=== PATIENT | female | born 1940 | race African-American/Black ===

== ENCOUNTER 2016-07-25 13:33 | Emergency (ER) | payer OTHER, BC ==
[2016-07-25 13:40] VITALS: TEMP 98.3; BMI 32.3
--- NOTE | 2016-07-25 14:20 | PDOC ---
Attending Attestation - Resident Resident Name: Braydon Cameron - ED Attending Attestation I have performed the following: I have examined & evaluated the patient, The case was reviewed & discussed with the resident, I agree w/resident's findings & plan - HPI HPI: 07/25/16 14:19 76y F hx of htn, bronchitis, former smoker, presenting with several days of cough productive of greenish sputum, associated with subjective fevers, nasal congestion, abd pain when she is coughing. +sick ocntacts through grandchild. pulm exam noted for rhochi bilaterally, no leg swellig or calf tenderness, and pt otherwise appears well and he rvitals are normal. the pts labs were viewed. cxr negative for pna, influnezan negative. will d/c the pt to fu with pmd and with a zpack for bronchitis. return precautions were discussed I discussed the physical exam findings, ancillary test results and final diagnoses with the patient. I answered all of the patient's questions. The patient was satisfied with the care received and felt comfortable with the discharge plan and treatment plan. The patient will call their primary care physician within 24 hours to arrange follow-up and will return to the Emergency Department with any new, persistent or worsening symptoms. - Physicial Exam PE: 07/25/16 16:21 see above - Medical Decision Making 07/25/16 16:21 see above Heart Score/ECG Review - ECG Impressions Comment:: 07/25/16 16:48 Twelve-lead EKG was performed and reviewed by me. There is normal sinus rhythm with a normal rate of 69 Left axis deviation
--- NOTE | 2016-07-25 14:27 | PDOC ---
History of Present Illness - General Chief Complaint: Respiratory Stated Complaint: CHEST DISCOMFORT Time Seen by Provider: 07/25/16 13:50 History Source: Patient Exam Limitations: No Limitations - History of Present Illness Initial Comments: 07/25/16 14:22 76 yo F with significant PMHx of HTN and bronchitis presents with one week history of worsening cough and shortness of breath. Cough is productive of green sputum but no blood. Accompanied by pleuritic chest pain, body aches, and subjective fevers. She states shortness of breath is worse to the point where home inhalers are not sufficient. No alleviating factors. Denies urinary or GI symptoms. Denies recent travel or sick contacts. She did receive flu shot this year and unsure when she received pneumonia vaccine. Timing/Duration: reports: getting worse Severity: reports: moderate Past History - Travel Traveled outside of the country in the last 30 days: No Close contact w/someone who was outside of country & ill: No - Past Medical History Allergies/Adverse Reactions: Allergies Allergy/AdvReac Type Severity Reaction Status Date / Time No Known Allergies Allergy Verified 07/25/16 13:41 Home Medications: Ambulatory Orders Amlodipine Besylate [Norvasc -] 5 mg PO DAILY 06/19/13 Azithromycin [Zithromax 250mg Tablets -] 250 mg PO UTDICT #6 tab 07/25/16 Cardiac Disorders: Yes HTN: Yes Other medical history: Bronchitis on Trudoza. - Surgical History Abdominal Surgery: Yes (TUBAL LIGATION) - Immunization History Immunization Up to Date: Yes - Psycho/Social/Smoking Cessation Hx Anxiety: No Suicidal Ideation: No Smoking Status: Yes Smoking History: Former smoker Have you smoked in the past 12 months: No Number of Cigarettes Smoked Daily: 6 Information on smoking cessation initiated: No 'Breaking Loose' booklet given: 04/29/12 Hx Alcohol Use: No Drug/Substance Use Hx: No Substance Use Type: None Respiratory Specific PMHX - Complaint Specific PMHX Angina: No Bronchitis: Yes Pneumonia: No Pulmonary Embolus: No TB (Tuberculosis): No Review of Systems - Review of Systems Constitutional: Yes: Fever, Malaise Respiratory: Yes: Cough, Shortness of Breath Cardiac (ROS): Yes: Chest Pain All Other Systems: Reviewed and Negative *Physical Exam - Vital Signs Last Vital Signs Temp Pulse Resp BP Pulse Ox 98.3 F 73 22 145/61 94 L 07/25/16 13:37 07/25/16 13:37 07/25/16 13:37 07/25/16 13:37 07/25/16 13:37 - Physical Exam General Appearance: Yes: Nourished, Mild Distress HEENT: positive: EOMI, ISHAAN, Normal ENT Inspection, Normal Voice, TMs Normal, Pharynx Normal Neck: positive: Supple Respiratory/Chest: positive: Chest Tender, Decreased Breath Sounds, Rhonchi. negative: Respiratory Distress, Accessory Muscle Use Cardiovascular: positive: Regular Rhythm, Regular Rate, S1, S2. negative: Edema , JVD, Murmur Vascular Pulses: Dorsalis-Pedis (R): 2+, Doralis-Pedis (L): 2+ Gastrointestinal/Abdominal: positive: Normal Bowel Sounds, Flat, Soft. negative : Organomegaly, Pulsatile Mass Musculoskeletal: positive: Normal Inspection, CVA Tenderness Extremity: positive: Normal Capillary Refill, Normal Range of Motion Integumentary: positive: Normal Color, Dry, Warm. negative: Cyanotic, Erythema Neurologic: positive: supervisor electronics testing II-XII NML intact, Fully Oriented, Alert, Normal Mood/ Affect, Motor Strength 5/5 Heart Score/ECG Review - ECG Intrepretation Rhythm: Regular Rhythm - Henderson Henderson: Left Henderson Deviation - ECG Impressions Normal ECG: Yes ED Treatment Course - LABORATORY CBC & Chemistry Diagram: 07/25/16 14:36 07/25/16 14:36 - RADIOLOGY Radiology Studies Ordered: Category Date Time Status CHEST X-RAY PORTABLE* [RAD] Stat Radiology 07/25/16 14:20 Ordered Chest X-Ray Result: No Infiltrates Medical Decision Making - Medical Decision Making 07/25/16 14:30 76 yo F with significant PMHx of bronchitis and HTN presents with one week history of worsening productive cough and shortness of breath. Will send CBC, CMP, UA, and Flu swab. Duonebs and supplemental O2. 07/25/16 15:53 CXR- no acute pathology NO white count, kidney function WNL . Will discharge with Z-pack to follow up with PCP in 5 days. *DC/Admit/Observation/Transfer Diagnosis at time of Disposition: Acute bronchitis Qualifiers: Bronchitis organism: unspecified organism Qualified Code(s): J20.9 - Acute bronchitis, unspecified - Discharge Dispostion Disposition: HOME Condition at time of disposition: Stable Admit: No - Patient Instructions Printed Discharge Instructions: DI for Acute Bronchitis Additional Instructions: You have been diagnosed with Acute Bronchitis. Take Z-Pack as directed. Drink plenty of fluids. Follow up with PCP in 5 days. regular diet. Increase activity as tolerated. If symptoms worsen please return to ER.
[2016-07-25] MEDS: ALBUTEROL SO4 2.5/IPRATROPIUM 0.5 INH SOL 3 ML VIAL.NEB. NEB ONE (14:34)
[2016-07-25 15:00] LABS: BASOPHIL 1.1 % (0-2.0); EOSINOPHIL 1.3 % (0-4.5); MCH 27.1 pg (25.7-33.7); MCHC 32.7 g/dl (32.0-36.0); MEAN CELL VOLUME 82.7 fl (80-96); MEAN PLT VOLUME 10.4 fl (7.5-11.1); NEUTROPHILS 50.2 % (42.8-82.8); PLATELET COUNT 108 K/MM3 (134-434); RDW 14.9 % (11.6-15.6)
[2016-07-25 15:26] LABS: ALBUMIN 3.3 g/dl (3.4-5.0); ALK PHOS 77 U/L (45-117); ANION GAP 9 (8-16); BILIRUBIN,TOTAL 0.4 mg/dL (0.2-1.0); CALCIUM 8.1 mg/dL (8.5-10.1); CO2 29 mmol/L (21-32); COCKROFT - GAULT 60.9195; CREATININE 0.9 mg/dL (0.55-1.02); GLUCOSE,RANDOM 127 mg/dL (74-106); SGOT/AST 28 U/L (15-37); SGPT/ALT 30 U/L (12-78); TOT PROT 7.3 g/dl (6.4-8.2)
[2016-07-25 16:04] VITALS: BP 133/75; PULSE 77
[2016-07-25 16:06] LABS: URINE APPEARANCE SLCLOUDY; URINE BILIRUBIN NEGATIVE (NEGATIVE); URINE BLOOD NEGATIVE (NEGATIVE); URINE COLOR YELLOW; URINE GLUCOSE (UA) NEGATIVE (NEGATIVE); URINE KETONE NEGATIVE (NEGATIVE); URINE LEUK ESTERASE NEGATIVE (NEGATIVE); URINE NITRITE NEGATIVE (NEGATIVE); URINE PROTEIN NEGATIVE (NEGATIVE); URINE UROBILINOGEN NEGATIVE E.U./dl (0.2-1.0)
--- NOTE | 2016-07-26 09:28 | EKG ---
Test Reason : Blood Pressure : / mmHG Vent. Rate : 069 BPM Atrial Rate : 069 BPM P-R Int : 174 ms QRS Dur : 066 ms QT Int : 442 ms P-R-T Axes : 062 -43 025 degrees QTc Int : 473 ms POOR DATA QUALITY, INTERPRETATION MAY BE ADVERSELY AFFECTED NORMAL SINUS RHYTHM LEFT AXIS DEVIATION LOW VOLTAGE QRS CANNOT RULE OUT ANTERIOR INFARCT , AGE UNDETERMINED ABNORMAL ECG NO PREVIOUS ECGS AVAILABLE Confirmed by DINO GUTIERREZ MD ([id number]) on 07/26/2016 9:28:34 AM Referred By: Confirmed By:DINO GUTIERREZ MD
== END 2016-07-25 16:08 | disposition home or self-care (01) ==
LOC: JER 13:33
PROC: 3E0F7GC Introduction of Other Therapeutic Substance into Respiratory Tract, Via Natural or Artificial Opening (ICD-10-PCS; principal; 2016-07-25)
DX: J20.9 Acute bronchitis, unspecified (principal); I10 Essential (primary) hypertension; Z87.891 Personal history of nicotine dependence
CPT/HCPCS: 36415; 71010-TC; 80053; 81003; 85025; 87804; 93005; 93010; 99283-25

== ENCOUNTER 2017-06-09 10:51 | Emergency (ER) | payer OTHER, BC ==
[2017-06-09 11:01] VITALS: BP 149/75; PULSE 71; TEMP 98.1; BMI 32.3
[2017-06-09] MEDS ORDERED: OXYMETAZOLINE 0.05% NASAL SOLUTION 15 ML BOTTLE NS ONE (11:45)
--- NOTE | 2017-06-09 11:52 | PDOC ---
History of Present Illness - General Chief Complaint: Nasal Bleeding Stated Complaint: NASAL BLEED Time Seen by Provider: 06/09/17 11:36 History Source: Patient - History of Present Illness Timing/Duration: other (this am) Associated Symptoms: denies: chest pain, cough, fever/chills, nausea/vomiting, shortness of breath, weakness Past History - Past Medical History Allergies/Adverse Reactions: Allergies Allergy/AdvReac Type Severity Reaction Status Date / Time No Known Allergies Allergy Verified 06/09/17 10:55 Home Medications: Ambulatory Orders Amlodipine Besylate [Norvasc -] 5 mg PO DAILY 06/19/13 Aspirin [ASA -] 81 mg PO DAILY 06/09/17 Cephalexin [Keflex] 500 mg PO Q6H #28 capsule 06/09/17 Sodium Chloride Nasal Alma [Clarke Alma Nasal Alma] 2 spray NS ONCE #1 spraybtl 06/09/17 Cardiac Disorders: Yes COPD: No HTN: Yes - Surgical History Abdominal Surgery: Yes (TUBAL LIGATION) - Immunization History Immunization Up to Date: Yes - Suicide/Smoking/Psychosocial Hx Smoking Status: Yes Smoking History: Former smoker Have you smoked in the past 12 months: No Number of Cigarettes Smoked Daily: 6 Information on smoking cessation initiated: No 'Breaking Loose' booklet given: 04/29/12 Hx Alcohol Use: No Drug/Substance Use Hx: No Substance Use Type: None *Physical Exam - Vital Signs Last Vital Signs Temp Pulse Resp BP Pulse Ox 98.1 F 71 14 149/75 100 06/09/17 10:56 06/09/17 10:56 06/09/17 10:56 06/09/17 10:56 06/09/17 10:56 - Physical Exam General Appearance: Yes: Appropriately Dressed. No: Apparent Distress HEENT: positive: Normal Voice, Other (b/l epistaxis w/ trace blood to oropharynx , no visible vessel) Neck: positive: Supple Respiratory/Chest: negative: Respiratory Distress Integumentary: positive: Dry, Warm Neurologic: positive: Fully Oriented, Alert, Normal Mood/Affect Medical Decision Making - Medical Decision Making 06/09/17 11:46 76-year-old female, history of hypothyroidism, hypertension, former smoker, recurrent epistaxis with history of nasal packing and cauterization in the past , follows up with Dr. Perdue of ENT, here with recurrent epistaxis this a.m. Patient states this a.m. had spontaneous nosebleed to R nares and at some point began having bleeding from the left side as well. Currently holding pressure in ED. Denies tasting blood in her throat. No headache, dizziness, nausea or vomiting. No recent URIs. States her apartment is very hot at times See exam Recurrent epistaxis S/p packing/cauterizations in past Stable w/ b/l epistaxis, R>L w/ trace blood to oropharynx -will attempt 20 minutes compression and afrin in ED, if no success, will place rhinorocket -consult to Dr Perdue of ENT placed 06/09/17 11:[address] Perdue of ENT, agrees with packing if above measures fail. States patient to follow-up in his office in 3 days 06/09/17 12:23 After approximately 30 minutes of compression in ED and Afrin, bleeding has currently resolved. Will continue to observe in ER and if bleeding recurs, will place rhino rocket and have patient follow-up with ENT 06/09/17 14:43 After a period of observation in ED, there is minor bleeding recurrently to the right nares. At this point, a 4.5 nasal rocket was placed, as patient was unable to tolerate the 5.5 Rhino Rocket. Discharge with Keflex to prevent TSS and patient to follow-up with ENT in 3 days as discussed *DC/Admit/Observation/Transfer Diagnosis at time of Disposition: Epistaxis - Discharge Dispostion Disposition: HOME Condition at time of disposition: Improved - Prescriptions Prescriptions: Cephalexin [Keflex] 500 mg PO Q6H #28 capsule Sodium Chloride Nasal Alma [Clarke Alma Nasal Alma] 2 spray NS ONCE #1 spraybtl - Referrals - Patient Instructions Printed Discharge Instructions: DI for Nosebleed Additional Instructions: You were seen for nosebleed in ED today and had a nasal packing placed to your right nose. Please take antibiotics as prescribed. You can use nasal saline spray in the left side to prevent rebleed. If bleeding recurs, return to ER immediately, otherwise follow-up with Dr. Perdue of ENT in 3 days for reevaluation evaluation - Post Discharge Activity
== END 2017-06-09 14:45 | disposition home or self-care (01) ==
LOC: JERFT 10:51
PROC: 0W3Q7ZZ Control Bleeding in Respiratory Tract, Via Natural or Artificial Opening (ICD-10-PCS; principal; 2017-06-09)
DX: R04.0 Epistaxis (principal); I10 Essential (primary) hypertension; E03.9 Hypothyroidism, unspecified; Z79.82 Long term (current) use of aspirin; Z87.891 Personal history of nicotine dependence
CPT/HCPCS: 30905; 99281-25

== ENCOUNTER 2020-06-17 11:20 | Emergency (ER) | payer OTHER, BC ==
[2020-06-17 11:35] VITALS: BP 147/74; PULSE 89; TEMP 98.5; BMI 30.2
[2020-06-17] MEDS ORDERED: ACETAMINOPHEN/CAFFEINE/BUTALBITAL 1 TAB PO ONE (12:19)
[2020-06-17] MEDS ORDERED: ACETAMINOPHEN/CAFFEINE/BUTALBITAL 1 TAB ONE (12:26)
== END 2020-06-17 13:43 | disposition home or self-care (01) ==
LOC: JERFT 11:20
DX: R51.9 Headache, unspecified (principal); Z04.1 Encounter for examination and observation following transport accident
CPT/HCPCS: 70450-TC; 72125-TC; 99284-25

== ENCOUNTER 2020-07-13 12:32 | Emergency (ER) | payer OTHER, BC ==
[2020-07-13 12:38] VITALS: BMI 30.2
[2020-07-13 15:07] LABS: EOS % 7.5 % (0-4.5); HEMATOCRIT 39.1 % (32.4-45.2); HEMOGLOBIN 12.6 GM/dL (10.7-15.3); LYMPH % 12.1 % (8-40); MCH 30.8 pg (25.7-33.7); MCHC 32.3 g/dl (32.0-36.0); MEAN CELL VOLUME 95.2 fl (80-96); MEAN PLT VOLUME 9.2 fl (7.5-11.1); MONO % 1.7 % (3.8-10.2); NEUT % 77.7 % (42.8-82.8); PLATELET COUNT 262 K/MM3 (134-434); RBC 4.11 M/mm3 (3.60-5.2); RDW 17.3 % (11.6-15.6); WHITE BLOOD COUNT 20.3 K/mm3 (4.0-10.0)
[2020-07-13 15:23] LABS: POTASSIUM 3.8 mmol/L (3.5-5.1)
[2020-07-13 15:25] LABS: CALCIUM 8.8 mg/dL (8.5-10.1)
[2020-07-13 15:26] LABS: ALBUMIN 3.8 g/dl (3.4-5.0); BLOOD UREA NITROGEN 8.1 mg/dL (7-18)
[2020-07-13 15:29] LABS: CREATININE 0.8 mg/dL (0.55-1.3)
[2020-07-13 15:30] LABS: BILIRUBIN,TOTAL 0.4 mg/dL (0.2-1)
[2020-07-13 15:31] LABS: TOT PROT 7.4 g/dl (6.4-8.2)
[2020-07-13 16:33] LABS: ANISOCYTOSIS 1+; MACROCYTOSIS 1+; PLATELET ESTIMATE NORMAL
[2020-07-13 16:54] LABS: URINE APPEARANCE CLEAR; URINE BILIRUBIN NEGATIVE (NEGATIVE); URINE COLOR YELLOW; URINE GLUCOSE (UA) NEGATIVE (NEGATIVE); URINE KETONE NEGATIVE (NEGATIVE); URINE LEUK ESTERASE NEGATIVE (NEGATIVE); URINE NITRITE NEGATIVE (NEGATIVE); URINE PROTEIN NEGATIVE (NEGATIVE); URINE UROBILINOGEN 0.2 mg/dL (0.2-1.0)
[2020-07-13 17:41] VITALS: BP 128/73; PULSE 78; TEMP 98.3
== END 2020-07-13 17:41 | disposition home or self-care (01) ==
LOC: JER 12:32
DX: K62.5 Hemorrhage of anus and rectum (principal)
CPT/HCPCS: 36415; 80053; 81003; 82272; 85025; 87086; 99284-25

== ENCOUNTER 2020-10-11 11:06 | Day surgery (SDC) | payer OTHER, BC ==
[2020-10-10 10:52] VITALS: BMI 30.4
[2020-10-11 12:42] VITALS: TEMP 98.2
[2020-10-11 12:48] VITALS: BP 123/74
[2020-10-11 13:00] VITALS: PULSE 68
== END 2020-10-11 13:50 | disposition home or self-care (01) ==
LOC: FASU-ENDO 11:06
PROVIDERS: ATTEND Internal Medicine Gastroenterology
PROC: 0DBN8ZX Excision of Sigmoid Colon, Via Natural or Artificial Opening Endoscopic, Diagnostic (ICD-10-PCS; 2020-10-11)
PROC: 0DBK8ZX Excision of Ascending Colon, Via Natural or Artificial Opening Endoscopic, Diagnostic (ICD-10-PCS; principal; 2020-10-11 12:09)
DX: Z12.11 Encounter for screening for malignant neoplasm of colon (principal); D12.5 Benign neoplasm of sigmoid colon; K57.30 Diverticulosis of large intestine without perforation or abscess without bleeding; K64.1 Second degree hemorrhoids; K63.89 Other specified diseases of intestine
CPT/HCPCS: 88305-TC

== ENCOUNTER 2021-08-23 14:40 | Inpatient (IN) | payer OTHER, BC ==
[2021-08-23 15:17] VITALS: BMI 30.1
[2021-08-23] MEDS ORDERED: FAMOTIDINE 20 MG/50 ML IVPB 20 MG in PREMIX 50 IVPB ONE (18:08)
[2021-08-23] MEDS ORDERED: MAG HYDROX/AL HYDROX/SIMETH -MYLANTA- ORAL SUSPENSION PO ONE (18:08)
[2021-08-23 18:16] LABS: CALCIUM 9.3 mg/dL (8.5-10.1)
[2021-08-23 18:17] LABS: ALBUMIN 3.9 g/dl (3.4-5.0); BLOOD UREA NITROGEN 11.5 mg/dL (7-18)
[2021-08-23 18:20] LABS: CREATININE 1.1 mg/dL (0.55-1.3); HEMATOCRIT 46.5 % (32.4-45.2); HEMOGLOBIN 14.6 GM/dL (10.7-15.3); MCH 28.8 pg (25.7-33.7); MCHC 31.5 g/dl (32.0-36.0); MEAN CELL VOLUME 91.6 fl (80-96); MEAN PLT VOLUME 8.6 fl (7.5-11.1); PLATELET COUNT 276 10^3/uL (134-434); RBC 5.08 M/mm3 (3.60-5.2); RDW 18.4 % (11.6-15.6)
[2021-08-23 18:21] LABS: BILIRUBIN,TOTAL 0.7 mg/dL (0.2-1)
[2021-08-23 18:22] LABS: TOT PROT 8.3 g/dl (6.4-8.2)
[2021-08-23 18:36] LABS: WHITE BLOOD COUNT 37.4 K/mm3 (4.0-10.0)
[2021-08-23] MEDS ORDERED: CEFTRIAXONE 1 GM in DEXTROSE 5%-WATER - 50 ML IVPB ONE (18:37)
[2021-08-23] MEDS ORDERED: AZITHROMYCIN IVPB 500 MG in DEXTROSE 5%-WATER - 250 ML IVPB ONE (18:37)
[2021-08-23 19:13] LABS: ANISOCYTOSIS 1+; MACROCYTOSIS 1+; PLATELET ESTIMATE NORMAL
[2021-08-23 19:45] LABS: VENOUS BASE EXCESS 0.5 mmol/L (-2-2); VENOUS O2 SATURATION 53.1 % (70-80); VENOUS PCO2 46.6 mmHg (38-52); VENOUS PH 7.37 (7.310-7.410)
[2021-08-23] MEDS ORDERED: CEFTRIAXONE 1 GM/50 ML BAG ONE (20:29)
[2021-08-23] MEDS ORDERED: AZITHROMYCIN IVPB 500 MG/250 ML BAG IVPB ONE (21:38)
[2021-08-24] MEDS ORDERED: ALBUTEROL SO4 2.5/IPRATROPIUM 0.5 INH SOL 3 ML VIAL.NEB. NEB ONE ×4 (01:52→15:32)
[2021-08-24] MEDS ORDERED: DEXAMETHASONE SOD PHOSPHATE 10 MG/1 ML VIAL IVPUSH ONE (01:52)
[2021-08-24] MEDS ORDERED: DEXAMETHASONE SOD PHOSPHATE 10 MG/1 ML VIAL ONE (02:13)
[2021-08-24] MEDS ORDERED: ACETAMINOPHEN 325 MG TABLET (FP) ONE (07:22)
[2021-08-24] MEDS: ACETAMINOPHEN 325 MG TABLET (FP) PO PRN (07:28)
[2021-08-24] MEDS ORDERED: ALBUTEROL SO4 HFA INHALER IH PRN (09:44)
[2021-08-24] MEDS ORDERED: ENOXAPARIN NA (PORCINE) 40 MG/0.4 ML DISP.SYRIN SQ ONE (09:48)
[2021-08-24] MEDS ORDERED: ASPIRIN 81 MG CHEWABLE TABLETS ONE (09:48)
[2021-08-24] MEDS ORDERED: amLODIPine BESYLATE 5 MG TABLET (FP) ONE (09:48)
[2021-08-24] MEDS: amLODIPine BESYLATE 5 MG TABLET (FP) PO SCH (09:56)
[2021-08-24] MEDS: ASPIRIN 81 MG CHEWABLE TABLETS PO SCH (09:56)
[2021-08-24] MEDS: ENOXAPARIN NA (PORCINE) 40 MG/0.4 ML DISP.SYRIN SQ SCH (09:56)
[2021-08-24 10:06] LABS: PH,URINE 5.5 (5.0-8.0); URINE APPEARANCE CLEAR; URINE BILIRUBIN NEGATIVE (NEGATIVE); URINE COLOR YELLOW; URINE GLUCOSE (UA) NEGATIVE (NEGATIVE); URINE KETONE NEGATIVE (NEGATIVE); URINE PROTEIN 1+ (NEGATIVE)
[2021-08-24 10:07] LABS: EPI CELLS 8 /uL (0-25.1); HYALINE CASTS 0.6 /uL (0-3.1); URINE BACTERIA 5 /uL (0-1359); URINE LEUK ESTERASE NEGATIVE (NEGATIVE); URINE NITRITE NEGATIVE (NEGATIVE); URINE RBC 30 /uL (0-23.9); URINE UROBILINOGEN 0.2 mg/dL (0.2-1.0); URINE WBC 3 /uL (0-25.8)
[2021-08-24] MEDS: LACTATED RINGERS SOLUTION 1,000 ML/1,000 ML INFUS.BAG IV SCH ×2 (14:45→20:29)
[2021-08-24] MEDS: CEFTRIAXONE 1 GM in DEXTROSE 5%-WATER - 50 ML IVPB SCH (15:00)
[2021-08-24] MEDS: AZITHROMYCIN IVPB 500 MG/250 ML BAG IVPB SCH (15:30)
[2021-08-24] MEDS ORDERED: CEFTRIAXONE 1 GM/50 ML BAG ONE (15:31)
[2021-08-24] MEDS ORDERED: AZITHROMYCIN IVPB 500 MG/250 ML BAG IVPB ONE (15:32)
[2021-08-24] MEDS: ALBUTEROL SO4 2.5/IPRATROPIUM 0.5 INH SOL 3 ML VIAL.NEB. NEB SCH ×2 (15:40→20:53)
[2021-08-24 17:09] LABS: SARS-CoV-2 NAA Not Detected (Not Detected)
[2021-08-25 07:00] LABS: HEMATOCRIT 41.4 % (32.4-45.2); MCHC 31.4 g/dl (32.0-36.0); MEAN CELL VOLUME 92.2 fl (80-96); MEAN PLT VOLUME 9.4 fl (7.5-11.1); PLATELET COUNT 265 10^3/uL (134-434); RBC 4.49 M/mm3 (3.60-5.2); RDW 18.2 % (11.6-15.6)
[2021-08-25] MEDS: ALBUTEROL SO4 2.5/IPRATROPIUM 0.5 INH SOL 3 ML VIAL.NEB. NEB SCH ×4 (07:15→20:08)
[2021-08-25 07:18] LABS: ALBUMIN 3.2 g/dl (3.4-5.0); CALCIUM 8.8 mg/dL (8.5-10.1)
[2021-08-25 07:19] LABS: BLOOD UREA NITROGEN 21.4 mg/dL (7-18); MAGNESIUM 2.2 mg/dL (1.8-2.4)
[2021-08-25 07:21] LABS: CREATININE 0.9 mg/dL (0.55-1.3)
[2021-08-25 07:22] LABS: PHOSPHOROUS 3.8 mg/dL (2.5-4.9)
[2021-08-25 07:23] LABS: BILIRUBIN,TOTAL 0.2 mg/dL (0.2-1); TOT PROT 6.5 g/dl (6.4-8.2)
[2021-08-25 07:26] LABS: CALCIUM 8.9 mg/dL (8.5-10.1)
[2021-08-25 07:28] LABS: ALBUMIN 3.1 g/dl (3.4-5.0); BLOOD UREA NITROGEN 21.1 mg/dL (7-18); MAGNESIUM 2.4 mg/dL (1.8-2.4)
[2021-08-25 07:30] LABS: CREATININE 0.9 mg/dL (0.55-1.3)
[2021-08-25 07:32] LABS: BILIRUBIN,TOTAL 0.2 mg/dL (0.2-1); TOT PROT 6.6 g/dl (6.4-8.2)
[2021-08-25 07:33] LABS: WHITE BLOOD COUNT 40.5 K/mm3 (4.0-10.0)
[2021-08-25] MEDS ORDERED: cefTRIAXone SODIUM 1 GM VIAL ONE (09:05)
[2021-08-25] MEDS ORDERED: DEXTROSE 5%-WATER - 50 ML IVPB ONE (09:05)
[2021-08-25] MEDS: CEFTRIAXONE 1 GM in DEXTROSE 5%-WATER - 50 ML IVPB SCH (09:09)
[2021-08-25] MEDS: ENOXAPARIN NA (PORCINE) 40 MG/0.4 ML DISP.SYRIN SQ SCH (09:09)
[2021-08-25] MEDS: amLODIPine BESYLATE 5 MG TABLET (FP) PO SCH (09:09)
[2021-08-25] MEDS: AZITHROMYCIN IVPB 500 MG/250 ML BAG IVPB SCH (09:09)
[2021-08-25] MEDS: ASPIRIN 81 MG CHEWABLE TABLETS PO SCH (09:09)
[2021-08-25 09:37] LABS: ANISOCYTOSIS 0; MACROCYTOSIS 0
[2021-08-25 09:41] LABS: PLATELET ESTIMATE NORMAL
[2021-08-25] MEDS: LACTATED RINGERS SOLUTION 1,000 ML/1,000 ML INFUS.BAG IV SCH (13:46)
[2021-08-25] MEDS: ACETAMINOPHEN 325 MG TABLET (FP) PO PRN (21:53)
[2021-08-25] MEDS: BENZOCAINE/MENTH/CETYLPYRD CL 1 EACH LOZENGE MM PRN (23:20)
[2021-08-26] MEDS: ALBUTEROL SO4 2.5/IPRATROPIUM 0.5 INH SOL 3 ML VIAL.NEB. NEB SCH ×4 (07:50→20:08)
[2021-08-26] MEDS ORDERED: cefTRIAXone SODIUM 1 GM VIAL ONE (09:12)
[2021-08-26] MEDS ORDERED: DEXTROSE 5%-WATER - 50 ML IVPB ONE (09:13)
[2021-08-26] MEDS: ASPIRIN 81 MG CHEWABLE TABLETS PO SCH (09:23)
[2021-08-26] MEDS: ENOXAPARIN NA (PORCINE) 40 MG/0.4 ML DISP.SYRIN SQ SCH (09:26)
[2021-08-26] MEDS: AZITHROMYCIN IVPB 500 MG/250 ML BAG IVPB SCH (09:26)
[2021-08-26] MEDS: CEFTRIAXONE 1 GM in DEXTROSE 5%-WATER - 50 ML IVPB SCH (09:26)
[2021-08-26] MEDS: amLODIPine BESYLATE 5 MG TABLET (FP) PO SCH (09:26)
[2021-08-26 11:54] LABS: HEMOGLOBIN 13.1 GM/dL (10.7-15.3); MCH 29.8 pg (25.7-33.7); MCHC 32.8 g/dl (32.0-36.0); MEAN CELL VOLUME 90.8 fl (80-96); MEAN PLT VOLUME 8.8 fl (7.5-11.1); PLATELET COUNT 274 10^3/uL (134-434); RBC 4.41 M/mm3 (3.60-5.2); RDW 18.2 % (11.6-15.6); WHITE BLOOD COUNT 29.4 K/mm3 (4.0-10.0)
[2021-08-26 12:15] LABS: CALCIUM 8.1 mg/dL (8.5-10.1)
[2021-08-26 12:19] LABS: CREATININE 0.8 mg/dL (0.55-1.3)
[2021-08-26] MEDS: BENZOCAINE/MENTH/CETYLPYRD CL 1 EACH LOZENGE MM PRN (23:40)
[2021-08-27 07:09] LABS: HEMATOCRIT 41.2 % (32.4-45.2); MCH 29.2 pg (25.7-33.7); MCHC 31.5 g/dl (32.0-36.0); MEAN CELL VOLUME 92.8 fl (80-96); MEAN PLT VOLUME 9.2 fl (7.5-11.1); PLATELET COUNT 268 10^3/uL (134-434); RBC 4.43 M/mm3 (3.60-5.2); RDW 18.2 % (11.6-15.6); WHITE BLOOD COUNT 17.1 K/mm3 (4.0-10.0)
[2021-08-27 07:25] LABS: CALCIUM 8.4 mg/dL (8.5-10.1)
[2021-08-27 07:27] LABS: BLOOD UREA NITROGEN 9.5 mg/dL (7-18)
[2021-08-27 07:30] LABS: CREATININE 0.8 mg/dL (0.55-1.3)
[2021-08-27] MEDS: ALBUTEROL SO4 2.5/IPRATROPIUM 0.5 INH SOL 3 ML VIAL.NEB. NEB SCH ×3 (07:40→15:45)
[2021-08-27] MEDS ORDERED: cefTRIAXone SODIUM 1 GM VIAL ONE (10:38)
[2021-08-27] MEDS ORDERED: DEXTROSE 5%-WATER - 50 ML IVPB ONE (10:38)
[2021-08-27] MEDS: ENOXAPARIN NA (PORCINE) 40 MG/0.4 ML DISP.SYRIN SQ SCH (10:41)
[2021-08-27] MEDS: amLODIPine BESYLATE 5 MG TABLET (FP) PO SCH (10:41)
[2021-08-27] MEDS: AZITHROMYCIN IVPB 500 MG/250 ML BAG IVPB SCH (10:41)
[2021-08-27] MEDS: CEFTRIAXONE 1 GM in DEXTROSE 5%-WATER - 50 ML IVPB SCH (10:41)
[2021-08-27] MEDS: ASPIRIN 81 MG CHEWABLE TABLETS PO SCH (10:41)
[2021-08-27 18:42] VITALS: BP 125/66; PULSE 88; TEMP 98.5
== END 2021-08-27 18:39 | disposition home or self-care (01) | DRG 189 ==
LOC: JER 14:40 → JERBED 23:56 → J2W 08-24 19:58
PROVIDERS: ADMIT Hospitalist; ATTEND Internal Medicine
DX: J96.01 Acute respiratory failure with hypoxia (principal); J18.9 Pneumonia, unspecified organism; C92.10 Chronic myeloid leukemia, BCR/ABL-positive, not having achieved remission; D72.829 Elevated white blood cell count, unspecified; I10 Essential (primary) hypertension; R91.8 Other nonspecific abnormal finding of lung field
CPT/HCPCS: 36415; 71045-TC-FY; 71275-TC; 80048; 80053; 81003; 82803; 83690; 83735; 84100; 84443; 84484; 85025; 85027; 85379; 86738; 87040; 87086; 87804; 87807; 87899; 93005; 93010; 94640; 94761; 97116-GP; 97161-GP; 99285-25; C9803-CS; J1100; Q9967; U0003; U0005

== ENCOUNTER 2021-12-31 16:14 | Emergency (ER) | payer OTHER, BC ==
[2021-12-31 16:28] VITALS: BP 134/68; PULSE 80; RESP 16; TEMP 98
[2021-12-31] MEDS ORDERED: DIPHTH,PERTUSS(ACELL),TET 0.5 ML DISP.SYRIN IM ONE ×2 (18:19→18:23)
== END 2021-12-31 21:17 | disposition home or self-care (01) ==
LOC: JERFT 16:14
PROC: 3E0234Z Introduction of Serum, Toxoid and Vaccine into Muscle, Percutaneous Approach (ICD-10-PCS; principal; 2021-12-31)
DX: S70.01XA Contusion of right hip, initial encounter (principal); S46.911A Strain of unspecified muscle, fascia and tendon at shoulder and upper arm level, right arm, initial encounter; W01.0XXA Fall on same level from slipping, tripping and stumbling without subsequent striking against object, initial encounter
CPT/HCPCS: 70450-TC; 72125-TC; 73030-TC-RT-FY; 73502-TC-RT-FY; 73700-TC-RT; 90471; 90715; 99285-25

== ENCOUNTER 2022-11-07 13:20 | Emergency (ER) | payer OTHER, BC ==
[2022-11-07 13:28] VITALS: BP 163/87; PULSE 78; RESP 18; TEMP 98.7; BMI 26.2
[2022-11-07] MEDS ORDERED: ACETAMINOPHEN 325 MG TABLET (FP) PO ONE (13:35)
[2022-11-07] MEDS ORDERED: ACETAMINOPHEN 325 MG TABLET (FP) ONE (13:39)
== END 2022-11-07 16:00 | disposition home or self-care (01) ==
LOC: FER 13:20
DX: M25.551 Pain in right hip (principal); W01.198A Fall on same level from slipping, tripping and stumbling with subsequent striking against other object, initial encounter
CPT/HCPCS: 70450-TC; 71046-TC-FY; 72125-TC; 72170-TC-FY; 73521-TC-FY; 81003; 87086; 99285-25

== ENCOUNTER 2023-02-10 12:45 | Inpatient (IN) | payer OTHER, BC ==
[2023-02-17 17:43] VITALS: BMI 25.8
[2023-02-21] MEDS ORDERED: CEFAZOLIN 2 GM in DEXTROSE 5%-WATER - 50 ML IVPB ONE (07:00)
[2023-02-21] MEDS ORDERED: VANCOMYCIN 1,000 MG VIAL (RESTRICTED TO ID ONLY) ONE ×2 (07:15→08:27)
[2023-02-21] MEDS ORDERED: MIDAZOLAM HCL 2 MG/2 ML SINGLE DOSE VIAL ONE ×2 (07:29→09:54)
[2023-02-21] MEDS ORDERED: DEXAMETHASONE SOD PHOSPHATE/PF 10 MG/ML SDV ONE (07:30)
[2023-02-21] MEDS ORDERED: ROPIVACAINE HCL 0.5% 30ML VIAL ONE (07:30)
[2023-02-21] MEDS ORDERED: TRANEXAMIC ACID 1000 MG/10 ML VIAL IVPUSH ONE (08:00)
[2023-02-21] MEDS ORDERED: BUPIVACAINE HCL/PF 0.5% (5MG/ML) 10 ML VIAL ONE (08:20)
[2023-02-21] MEDS ORDERED: ceFAZolin SODIUM 1 GM VIAL ONE (08:27)
[2023-02-21] MEDS ORDERED: ONDANSETRON 4 MG/2 ML VIAL ONE (08:40)
[2023-02-21] MEDS ORDERED: DEXAMETHASONE SOD PHOSPHATE 4 MG/1 ML VIAL ONE (08:40)
[2023-02-21] MEDS ORDERED: BUPIVICAINE 0.25%/MORPH PF/KETOROLAC - 51ML DISP.SYRINGE IA ONE ×2 (09:50→10:28)
[2023-02-21] MEDS ORDERED: VANCOMYCIN 1,000 MG VIAL (RESTRICTED TO ID ONLY) IVPB ONE (10:21)
[2023-02-21] MEDS ORDERED: ONDANSETRON 4 MG/2 ML VIAL IVPUSH PRN ×2 (11:11→11:16)
[2023-02-21] MEDS ORDERED: MAG HYDROX/AL HYDROX/SIMETH 30 ML UNIT-DOSE CUP PO PRN (11:11)
[2023-02-21] MEDS ORDERED: MAGNESIUM HYDROX 2400MG/30ML ORAL SUSPENSION 30 ML CUP PO PRN (11:11)
[2023-02-21] MEDS ORDERED: LACTATED RINGERS SOLUTION 1,000 ML IV SCH (11:15)
[2023-02-21] MEDS ORDERED: ACETAMINOPHEN 1000 MG/100 ML BAG IVPB ONE (11:42)
[2023-02-21] MEDS ORDERED: oxyCODONE HCL 5 MG TABLET PO PRN (11:42)
[2023-02-21] MEDS: KETOROLAC TROMETHAMINE 30 MG/1 ML VIAL IVPUSH SCH ×2 (12:09→16:55)
[2023-02-21] MEDS: LACTATED RINGERS SOLUTION 1,000 ML IV SCH (13:00)
[2023-02-21] MEDS: CEFAZOLIN 1 GM in DEXTROSE 5%-WATER - 50 ML IVPB SCH (16:55)
[2023-02-21] MEDS ORDERED: ACETAMINOPHEN 500 MG TABLET (FP) PO SCH ×2 (18:00)
[2023-02-21] MEDS: ACETAMINOPHEN 325 MG TABLET (FP) PO SCH (20:44)
[2023-02-21] MEDS: SENNOSIDES/DOCUSATE COMBO (SENNA PLUS) TABLET (UD) PO SCH (22:54)
[2023-02-21] MEDS: oxyCODONE HCL 10 MG SUSTAINED ACTING TABLET PO SCH (22:54)
[2023-02-22] MEDS: CEFAZOLIN 1 GM in DEXTROSE 5%-WATER - 50 ML IVPB SCH ×3 (00:08→18:38)
[2023-02-22] MEDS: ACETAMINOPHEN 325 MG TABLET (FP) PO SCH ×4 (01:50→21:03)
[2023-02-22 08:27] LABS: HEMATOCRIT 32.2 % (32.4-45.2); HEMOGLOBIN 9.9 G/dL (10.7-15.3); MCH 29.2 pg (25.7-33.7); MCHC 30.6 g/dl (32.0-36.0); MEAN CELL VOLUME 95.5 fl (80-96); MEAN PLT VOLUME 10.1 fl (7.5-11.1); PLATELET COUNT 416.3 10^3/uL (134-434); RBC 3.37 10^6/uL (3.60-5.2); RDW 18.2 % (11.6-15.6)
[2023-02-22 08:33] LABS: WHITE BLOOD COUNT 69.5 10^3/uL (4.0-10.8)
[2023-02-22] MEDS: ASPIRIN 81 MG CHEWABLE TABLETS PO SCH ×2 (10:10→21:04)
[2023-02-22] MEDS: MULTIVITAMINS (DAILY MVI) TABLET (FP) PO SCH (10:10)
[2023-02-22] MEDS: PANTOPRAZOLE 40 MG TABLET PO SCH (10:11)
[2023-02-22] MEDS: SENNOSIDES/DOCUSATE COMBO (SENNA PLUS) TABLET (UD) PO SCH ×2 (10:11→21:04)
[2023-02-22 11:01] LABS: POTASSIUM 4.6 mmol/L (3.5-5.1)
[2023-02-22 11:02] LABS: CALCIUM 7.8 mg/dL (8.5-10.1)
[2023-02-22 11:03] LABS: BLOOD UREA NITROGEN 20.7 mg/dL (7-18)
[2023-02-22 11:06] LABS: CREATININE 1.4 mg/dL (0.55-1.3)
[2023-02-22] MEDS: oxyCODONE HCL 10 MG SUSTAINED ACTING TABLET PO SCH ×2 (18:33→21:04)
[2023-02-22] MEDS: amLODIPine BESYLATE 5 MG TABLET (FP) PO SCH (18:34)
[2023-02-23] MEDS: ACETAMINOPHEN 325 MG TABLET (FP) PO SCH ×4 (02:41→21:18)
[2023-02-23 09:30] LABS: HEMATOCRIT 26.1 % (32.4-45.2); HEMOGLOBIN 7.9 G/dL (10.7-15.3); MCH 28.8 pg (25.7-33.7); MCHC 30.2 g/dl (32.0-36.0); MEAN CELL VOLUME 95.6 fl (80-96); MEAN PLT VOLUME 10.2 fl (7.5-11.1); RBC 2.73 10^6/uL (3.60-5.2); RDW 17.9 % (11.6-15.6)
[2023-02-23 09:39] LABS: WHITE BLOOD COUNT 60.3 10^3/uL (4.0-10.8)
[2023-02-23] MEDS: MULTIVITAMINS (DAILY MVI) TABLET (FP) PO SCH (10:30)
[2023-02-23] MEDS: ASPIRIN 81 MG CHEWABLE TABLETS PO SCH ×2 (10:30→21:18)
[2023-02-23] MEDS: SENNOSIDES/DOCUSATE COMBO (SENNA PLUS) TABLET (UD) PO SCH ×2 (10:31→21:19)
[2023-02-23] MEDS: PANTOPRAZOLE 40 MG TABLET PO SCH (10:31)
[2023-02-23] MEDS: oxyCODONE HCL 10 MG SUSTAINED ACTING TABLET PO SCH ×2 (10:33→21:19)
[2023-02-23] MEDS: amLODIPine BESYLATE 5 MG TABLET (FP) PO SCH (10:34)
[2023-02-23 18:32] LABS: HEMATOCRIT 21.6 % (32.4-45.2); MCH 29.7 pg (25.7-33.7); MCHC 31.4 g/dl (32.0-36.0); MEAN CELL VOLUME 94.6 fl (80-96); PLATELET COUNT 312.7 10^3/uL (134-434); RBC 2.28 10^6/uL (3.60-5.2); RDW 18.5 % (11.6-15.6)
[2023-02-23 18:38] LABS: HEMOGLOBIN 6.8 G/dL (10.7-15.3); WHITE BLOOD COUNT 40.4 10^3/uL (4.0-10.8)
[2023-02-23 19:27] LABS: ADD RBC MORPHOLOGY YES
[2023-02-23 19:28] LABS: PLATELET ESTIMATE ADEQUATE
[2023-02-23 19:29] LABS: ANISOCYTOSIS 1+
[2023-02-23] MEDS: LACTATED RINGERS SOLUTION 1,000 ML IV SCH (20:59)
[2023-02-24] MEDS: ACETAMINOPHEN 325 MG TABLET (FP) PO SCH ×3 (03:14→08:58)
[2023-02-24 06:37] VITALS: RESP 16
[2023-02-24] MEDS: oxyCODONE HCL 5 MG TABLET PO PRN ×2 (06:39→10:42)
[2023-02-24] MEDS: PANTOPRAZOLE 40 MG TABLET PO SCH (09:52)
[2023-02-24] MEDS: ASPIRIN 81 MG CHEWABLE TABLETS PO SCH (09:52)
[2023-02-24] MEDS: MULTIVITAMINS (DAILY MVI) TABLET (FP) PO SCH (09:52)
[2023-02-24] MEDS: amLODIPine BESYLATE 5 MG TABLET (FP) PO SCH (09:54)
[2023-02-24] MEDS: SENNOSIDES/DOCUSATE COMBO (SENNA PLUS) TABLET (UD) PO SCH (09:55)
[2023-02-24] MEDS: oxyCODONE HCL 10 MG SUSTAINED ACTING TABLET PO SCH (09:55)
[2023-02-24 10:11] VITALS: BP 103/50; PULSE 79; TEMP 98.6
[2023-02-24 10:34] LABS: HEMATOCRIT 24.2 % (32.4-45.2); HEMOGLOBIN 7.7 GM/dL (10.7-15.3); MCH 28.7 pg (25.7-33.7); MCHC 31.8 g/dl (32.0-36.0); MEAN CELL VOLUME 90.2 fl (80-96); PLATELET COUNT 323 10^3/uL (134-434); RBC 2.68 M/mm3 (3.60-5.2); RDW 16.5 % (11.6-15.6); WHITE BLOOD COUNT 29.5 K/mm3 (4.0-10.0)
[2023-02-24 11:08] LABS: ANISOCYTOSIS 1+; MACROCYTOSIS 1+
== END 2023-02-24 13:29 | disposition home or self-care (01) | DRG 470 ==
LOC: FM/S 02-21 06:09
PROVIDERS: ADMIT Orthopaedic Surgery Sports Medicine
PROC: 30233N1 Transfusion of Nonautologous Red Blood Cells into Peripheral Vein, Percutaneous Approach (ICD-10-PCS; 2023-02-21)
PROC: 0SR90JZ Replacement of Right Hip Joint with Synthetic Substitute, Open Approach (ICD-10-PCS; principal; 2023-02-21 08:53)
DX: M16.11 Unilateral primary osteoarthritis, right hip (principal); D62 Acute posthemorrhagic anemia; I10 Essential (primary) hypertension; E78.5 Hyperlipidemia, unspecified; R91.8 Other nonspecific abnormal finding of lung field; G89.18 Other acute postprocedural pain
CPT/HCPCS: 36415; 73502-TC-RT-FY; 80048; 85025; 85027; 86900; 86922; 88300-TC; 88305-TC; 88311-TC; 94760; 97010-GP; 97110-GP; 97116-GP; C1713; C1776; C1889; P9058

== ENCOUNTER 2023-03-05 16:46 | Emergency (ER) | payer OTHER, BC ==
[2023-03-05 17:01] VITALS: BP 132/70; PULSE 104; RESP 18; TEMP 98.8; BMI 25.8
== END 2023-03-05 17:22 | disposition home or self-care (01) ==
LOC: FER 16:46
DX: L89.301 Pressure ulcer of unspecified buttock, stage 1 (principal)
CPT/HCPCS: 99282-25

== ENCOUNTER 2023-08-10 04:26 | Emergency (ER) | payer OTHER, BC ==
[2023-08-10 04:36] VITALS: BP 134/77; PULSE 84; RESP 18; TEMP 97.6; BMI 25.2
== END 2023-08-10 06:00 | disposition home or self-care (01) ==
LOC: JER 04:26
DX: Z20.822 Contact with and (suspected) exposure to COVID-19 (principal)
CPT/HCPCS: 0241U-QW; 99283-25

== ENCOUNTER 2023-09-03 18:58 | Emergency (ER) | payer OTHER, BC ==
[2023-09-03 19:09] VITALS: BP 139/64; PULSE 78; RESP 20; TEMP 99.1; BMI 27.2
[2023-09-03] MEDS: SODIUM CHLORIDE 0.9% 500 ML INFUS.BAG IV ONE (20:34)
[2023-09-03 20:47] LABS: HEMATOCRIT 41.4 % (32.4-45.2); HEMOGLOBIN 12.9 G/dL (10.7-15.3); MCH 28.1 pg (25.7-33.7); MCHC 31.1 g/dl (32.0-36.0); MEAN CELL VOLUME 90.3 fl (80-96); MEAN PLT VOLUME 10.1 fl (7.5-11.1); PLATELET COUNT 208.3 10^3/uL (134-434); RBC 4.59 10^6/uL (3.60-5.2); RDW 19.5 % (11.6-15.6); WHITE BLOOD COUNT 10.2 10^3/uL (4.0-10.8)
[2023-09-03 21:00] LABS: ALBUMIN 3.7 g/dl (3.4-5.0); BILIRUBIN,TOTAL 0.3 mg/dl (0.2-1); CALCIUM 8.7 mg/dl (8.5-10.1); CREATININE 1.1 mg/dl (0.6-1.3); POTASSIUM 4.2 mmol/L (3.5-5.1)
== END 2023-09-03 21:57 | disposition home or self-care (01) ==
LOC: FER 18:58
DX: R42 Dizziness and giddiness (principal)
CPT/HCPCS: 36415; 80053; 82550; 83735; 84484; 85027; 93005; 99283-25

== ENCOUNTER 2024-08-23 09:48 | Inpatient (IN) | payer OTHER, BC ==
[2024-08-23] MEDS: SODIUM CHLORIDE 0.9% 500 ML INFUS.BAG IV ONE (11:00)
[2024-08-23 11:35] LABS: HEMATOCRIT 24.5 % (34.1-44.9)
[2024-08-23 11:37] LABS: HEMOGLOBIN 6.2 g/dL (11.2-15.7); MCHC 25.3 g/dl (32.2-35.5); MEAN CELL VOLUME 95.7 fl (79.4-94.8); PLATELET COUNT 26 x10^3/uL (182-369); RDW 23.9 % (12.5-17.0)
[2024-08-23 11:43] LABS: INR 1.32 (0.83-1.09); PROTHROMBIN TIME (PATIENT) 14.5 SEC (9.7-13.0)
[2024-08-23 11:46] LABS: ACTIVATED PTT 25.9 SECONDS (25.2-36.5)
[2024-08-23 12:59] LABS: EPI CELLS 20 /uL (0-25.1); HYALINE CASTS 1 /uL (0-3.1); POTASSIUM 4.4 mmol/L (3.5-5.1); URINE APPEARANCE CLOUDY; URINE BILIRUBIN NEGATIVE (NEGATIVE); URINE COLOR DK YELLOW; URINE GLUCOSE (UA) NEGATIVE (NEGATIVE); URINE KETONE NEGATIVE (NEGATIVE); URINE LEUK ESTERASE NEGATIVE (NEGATIVE); URINE NITRITE NEGATIVE (NEGATIVE); URINE PROTEIN TRACE (NEGATIVE); URINE WBC 13 /uL (0-25.8)
[2024-08-23 13:01] LABS: ALBUMIN 2.8 g/dl (3.4-5.0); BLOOD UREA NITROGEN 6.8 mg/dL (7-18); CALCIUM 8.1 mg/dL (8.5-10.1)
[2024-08-23 13:06] LABS: BILIRUBIN,TOTAL 0.8 mg/dL (0.2-1); TOT PROT 6.8 g/dl (6.4-8.2)
[2024-08-23 13:11] LABS: URINE BACTERIA 546 /uL (0-1359); URINE RBC 510 /uL (0-23.9)
[2024-08-23] MEDS ORDERED: CEFTRIAXONE 1 G/50 ML PREMIX 50 ML IVPB ONE (13:40)
[2024-08-23] MEDS: CEFTRIAXONE 1,000 MG in DEXTROSE 5%-WATER - 50 ML IVPB ONE (13:44)
[2024-08-23 14:19] LABS: Reticulocyte % 3.24 % (0.5-1.7)
[2024-08-23 17:49] VITALS: BMI 23.1
[2024-08-24 08:58] LABS: HEMATOCRIT 24.7 % (34.1-44.9); HEMOGLOBIN 6.9 g/dL (11.2-15.7); MCHC 27.9 g/dl (32.2-35.5); MEAN CELL VOLUME 94.3 fl (79.4-94.8); PLATELET COUNT 21 x10^3/uL (182-369); RDW 20.8 % (12.5-17.0)
[2024-08-24 09:49] LABS: POTASSIUM 3.6 mmol/L (3.5-5.1)
[2024-08-24] MEDS: LORATADINE 10 MG TABLET PO ONE (09:53)
[2024-08-24] MEDS: amLODIPine BESYLATE 5 MG TABLET (FP) PO SCH (09:53)
[2024-08-24 10:28] LABS: ALBUMIN 2.6 g/dl (3.4-5.0)
[2024-08-24 10:29] LABS: BLOOD UREA NITROGEN 6.1 mg/dL (7-18)
[2024-08-24 10:32] LABS: MAGNESIUM 2.1 mg/dL (1.8-2.4); PHOSPHOROUS 3.3 mg/dL (2.5-4.9)
[2024-08-24 10:33] LABS: BILIRUBIN,TOTAL 0.7 mg/dL (0.2-1); CREATININE 0.8 mg/dL (0.55-1.3)
[2024-08-24 10:34] LABS: TOT PROT 5.8 g/dl (6.4-8.2)
[2024-08-24 17:51] LABS: HEMATOCRIT 31.2 % (34.1-44.9)
[2024-08-24 17:54] LABS: MCHC 28.8 g/dl (32.2-35.5); PLATELET COUNT 24 x10^3/uL (182-369); RDW 18.8 % (12.5-17.0)
[2024-08-24 19:02] VITALS: RESP 18
[2024-08-25] MEDS: guaiFENesin 200 MG/10 ML 10 ML UNIT-DOSE CUPS PO PRN (06:20)
[2024-08-25 08:38] LABS: HEMOGLOBIN 9.4 g/dL (11.2-15.7)
[2024-08-25 08:40] LABS: HEMATOCRIT 32.3 % (34.1-44.9); MCHC 29.1 g/dl (32.2-35.5); MEAN CELL VOLUME 91.2 fl (79.4-94.8); PLATELET COUNT 21 x10^3/uL (182-369); RDW 19.3 % (12.5-17.0)
[2024-08-25 09:19] LABS: ALBUMIN 2.5 g/dl (3.4-5.0); BLOOD UREA NITROGEN 5.8 mg/dL (7-18)
[2024-08-25 09:20] LABS: CALCIUM 8.5 mg/dL (8.5-10.1)
[2024-08-25 09:22] LABS: CREATININE 0.8 mg/dL (0.55-1.3); PHOSPHOROUS 3.6 mg/dL (2.5-4.9)
[2024-08-25 09:23] LABS: BILIRUBIN,TOTAL 0.9 mg/dL (0.2-1)
[2024-08-25 11:44] VITALS: BP 129/67; PULSE 78; TEMP 98.2
[2024-08-25 16:43] LABS: POTASSIUM 3.9 mmol/L (3.5-5.1)
== END 2024-08-25 13:43 | disposition home or self-care (01) | DRG 812 ==
LOC: JER 09:48 → JERBED 13:06 → J6S 16:11
PROVIDERS: ADMIT Internal Medicine; ATTEND Internal Medicine
DX: D46.9 Myelodysplastic syndrome, unspecified (principal); I10 Essential (primary) hypertension; R53.1 Weakness; D69.6 Thrombocytopenia, unspecified
CPT/HCPCS: 0241U-QW; 36415; 36430; 71045-TC-FY; 80053; 81003; 82607; 82728; 82746; 83010; 83540; 83550; 83615; 83735; 84100; 85025; 85027; 85610; 85730; 86850; 86900; 86901; 86922; 87086; 87186; 88300-TC; 93005; 93010; 99285-25; P9058

== ENCOUNTER 2024-10-05 17:01 | Inpatient (IN) | payer OTHER, BC ==
[2024-10-05 17:13] VITALS: BMI 21.8
[2024-10-05 18:20] LABS: MEAN CELL VOLUME 95.4 fl (79.4-94.8); RDW 22.7 % (12.5-17.0)
[2024-10-05 18:21] LABS: ABSOLUTE IMMATURE GRANULOCYTES 6.26 x10^3/uL (0.0-0.031); BASOPHILS # 0.09 x10^3/uL (0.01-0.08); EOSINOPHIL % 1.1 % (0.7-5.8); HEMATOCRIT 25.1 % (34.1-44.9); MCHC 25.9 g/dl (32.2-35.5); MONOCYTE # 3.46 x10^3/uL (0.24-0.86); MONOCYTE % 12.6 % (4.7-12.5)
[2024-10-05 18:26] LABS: INR 1.36 (0.83-1.09); PROTHROMBIN TIME (PATIENT) 14.8 SEC (9.7-13.0)
[2024-10-05 18:31] LABS: HEMOGLOBIN 6.5 g/dL (11.2-15.7); PLATELET COUNT 24 x10^3/uL (182-369)
[2024-10-05 18:37] LABS: POTASSIUM 3.1 mmol/L (3.5-5.1)
[2024-10-05 18:40] LABS: ALBUMIN 2.8 g/dl (3.4-5.0); BLOOD UREA NITROGEN 11.1 mg/dL (7-18); CALCIUM 8.2 mg/dL (8.5-10.1)
[2024-10-05 18:43] LABS: CREATININE 1.4 mg/dL (0.55-1.3)
[2024-10-05 18:45] LABS: BILIRUBIN,TOTAL 0.7 mg/dL (0.2-1)
[2024-10-05 18:48] LABS: TOT PROT 6.4 g/dl (6.4-8.2)
[2024-10-05] MEDS ORDERED: POTASSIUM CHLORIDE ORAL LIQUID 20 MEQ/15 ML ONE (19:22)
[2024-10-05] MEDS ORDERED: MAGNESIUM 1GM/D5W - 1 GM/100 ML IVPB IVPB ONE (19:23)
[2024-10-05] MEDS: MAGNESIUM 1GM/D5W - 1 GM/100 ML IVPB IVPB ONE (19:32)
[2024-10-05] MEDS: POTASSIUM CHLORIDE ORAL LIQUID 20 MEQ/15 ML PO ONE (19:32)
[2024-10-05] MEDS ORDERED: BENZOCAINE/MENTH/CETYLPYRD CL 1 EACH LOZENGE MM PRN (23:49)
[2024-10-06] MEDS: guaiFENesin 200 MG/10 ML 10 ML UNIT-DOSE CUPS PO ONE (00:28)
[2024-10-06 03:02] LABS: HEMATOCRIT 31.8 % (34.1-44.9); MEAN CELL VOLUME 93.5 fl (79.4-94.8)
[2024-10-06 03:04] LABS: HEMOGLOBIN 8.8 g/dL (11.2-15.7); MCHC 27.7 g/dl (32.2-35.5); PLATELET COUNT 21 x10^3/uL (182-369); RDW 20.4 % (12.5-17.0)
[2024-10-06] MEDS ORDERED: PIPERACILLIN/TAZOB 4.5 GM 4.5 GM in DEXTROSE 5%-WATER 100 ML IVPB SCH ×2 (03:45→04:30)
[2024-10-06] MEDS: VANCOMYCIN 1,000 MG in DEXTROSE 5%-WATER - 250 ML IVPB ONE (04:24)
[2024-10-06] MEDS: PIPERACILLIN/TAZOB 2.25 GM 2.25 GM in DEXTROSE 5%-WATER - 50 ML IVPB SCH (05:34)
[2024-10-06] MEDS: VANCOMYCIN/WATER FOR INJ (PEG) 1,000 MG/200 ML BAG IVPB ONE (06:21)
[2024-10-06 07:58] LABS: PLATELET COUNT 19 x10^3/uL (182-369)
[2024-10-06 08:00] LABS: HEMATOCRIT 27.1 % (34.1-44.9); HEMOGLOBIN 7.7 g/dL (11.2-15.7); MCHC 28.4 g/dl (32.2-35.5); MEAN CELL VOLUME 92.8 fl (79.4-94.8); RDW 20.6 % (12.5-17.0)
[2024-10-06 08:20] LABS: POTASSIUM 3.2 mmol/L (3.5-5.1)
[2024-10-06 08:28] LABS: ALBUMIN 2.5 g/dl (3.4-5.0); BLOOD UREA NITROGEN 11.4 mg/dL (7-18)
[2024-10-06 08:29] LABS: BILIRUBIN,TOTAL 0.8 mg/dL (0.2-1)
[2024-10-06 08:30] LABS: TOT PROT 5.7 g/dl (6.4-8.2)
[2024-10-06 08:31] LABS: CREATININE 1.2 mg/dL (0.55-1.3)
[2024-10-06 08:32] LABS: PHOSPHOROUS 3.4 mg/dL (2.5-4.9)
[2024-10-06 08:34] LABS: EPI CELLS >36 /uL (0-25.1); HYALINE CASTS 22 /uL (0-3.1); PH,URINE 5.5 (5.0-8.0); URINE APPEARANCE CLOUDY; URINE BACTERIA 34 /uL (0-1359); URINE BILIRUBIN NEGATIVE (NEGATIVE); URINE COLOR DK YELLOW; URINE GLUCOSE (UA) NEGATIVE (NEGATIVE); URINE KETONE TRACE (NEGATIVE); URINE LEUK ESTERASE NEGATIVE (NEGATIVE); URINE NITRITE NEGATIVE (NEGATIVE); URINE PROTEIN 2+ (NEGATIVE); URINE RBC 18 /uL (0-23.9)
[2024-10-06 08:34] LABS: MAGNESIUM 2.1 mg/dL (1.8-2.4)
[2024-10-06] MEDS: POTASSIUM CHLORIDE TABS 20 MEQ TABLET.ER (FP) PO ONE (10:03)
[2024-10-06] MEDS: amLODIPine BESYLATE 5 MG TABLET (FP) PO SCH (10:03)
[2024-10-06 10:48] LABS: URINE WBC 103 /uL (0-25.8)
[2024-10-07 08:06] LABS: INR 1.28 (0.83-1.09)
[2024-10-07 08:08] LABS: HEMOGLOBIN 8.2 g/dL (11.2-15.7); MEAN CELL VOLUME 92.4 fl (79.4-94.8)
[2024-10-07 08:10] LABS: HEMATOCRIT 29.2 % (34.1-44.9); MCHC 28.1 g/dl (32.2-35.5); PLATELET COUNT 20 x10^3/uL (182-369); RDW 21.1 % (12.5-17.0)
[2024-10-07 08:20] LABS: POTASSIUM 3.9 mmol/L (3.5-5.1)
[2024-10-07 08:27] LABS: CREATININE 1.1 mg/dL (0.55-1.3); PHOSPHOROUS 3.4 mg/dL (2.5-4.9)
[2024-10-07 08:28] LABS: ALBUMIN 2.5 g/dl (3.4-5.0); BLOOD UREA NITROGEN 6.2 mg/dL (7-18); TOT PROT 5.9 g/dl (6.4-8.2)
[2024-10-07 08:38] LABS: CALCIUM 8.3 mg/dL (8.5-10.1)
[2024-10-07] MEDS: amLODIPine BESYLATE 5 MG TABLET (FP) PO SCH (09:20)
[2024-10-07] MEDS: MULTIVITAMINS (DAILY MVI) TABLET (FP) PO SCH (09:26)
[2024-10-07] MEDS ORDERED: FENTANYL CITRATE/PF 50 MCG/ML VIAL ONE (11:56)
[2024-10-07] MEDS ORDERED: MIDAZOLAM HCL 2 MG/2 ML SINGLE DOSE VIAL ONE (11:56)
[2024-10-07] MEDS: SODIUM CHLORIDE 500 ML IV SCH (12:15)
[2024-10-07] MEDS: guaiFENesin 600 MG TABLET.ER (FP) PO SCH (14:19)
[2024-10-07] MEDS: PIPERACILLIN/TAZOB 2.25 GM 2.25 GM in DEXTROSE 5%-WATER - 50 ML IVPB SCH (17:18)
[2024-10-08 09:10] LABS: HEMATOCRIT 28.6 % (34.1-44.9); HEMOGLOBIN 7.9 g/dL (11.2-15.7); MCHC 27.6 g/dl (32.2-35.5); MEAN CELL VOLUME 92.9 fl (79.4-94.8)
[2024-10-08 09:12] LABS: PLATELET COUNT 41 x10^3/uL (182-369); RDW 20.7 % (12.5-17.0)
[2024-10-08] MEDS: PIPERACILLIN/TAZOB 2.25 GM 2.25 GM/50 ML BAG IVPB SCH (09:18)
[2024-10-08 09:31] LABS: POTASSIUM 3.3 mmol/L (3.5-5.1)
[2024-10-08 09:33] LABS: ALBUMIN 2.5 g/dl (3.4-5.0); CALCIUM 7.7 mg/dL (8.5-10.1)
[2024-10-08 09:34] LABS: BLOOD UREA NITROGEN 9.6 mg/dL (7-18); MAGNESIUM 1.8 mg/dL (1.8-2.4)
[2024-10-08 09:37] LABS: CREATININE 1.1 mg/dL (0.55-1.3)
[2024-10-08 09:38] LABS: BILIRUBIN,TOTAL 0.6 mg/dL (0.2-1)
[2024-10-08 09:39] LABS: TOT PROT 5.8 g/dl (6.4-8.2)
[2024-10-08] MEDS: POTASSIUM CHLORIDE ORAL LIQUID 20 MEQ/15 ML PO ONE (10:15)
[2024-10-08 11:47] VITALS: BP 131/72; PULSE 72; RESP 18; TEMP 97.9
[2024-10-08] MEDS ORDERED: AMOX TR/POT CLAV 875MG/125MG TABLETS (FP) PO SCH (17:30)
[2024-10-08] MEDS ORDERED: AMOX TR/POT CLAV 500MG/125MG TABLETS (FP) PO SCH (17:30)
[2024-10-09] MEDS ORDERED: LACTOBACILLUS ACIDOPHILUS 1 TABLET PO SCH (10:00)
== END 2024-10-08 13:16 | disposition home or self-care (01) | DRG 811 ==
LOC: JER 17:01 → JERBED 19:01 → J8W 20:19 → OBSVTOIN 10-06 15:36
PROVIDERS: ADMIT Internal Medicine; ATTEND Nurse Practitioner Acute Care
PROC: 30233N1 Transfusion of Nonautologous Red Blood Cells into Peripheral Vein, Percutaneous Approach (ICD-10-PCS; 2024-10-05)
PROC: 07DR3ZX Extraction of Iliac Bone Marrow, Percutaneous Approach, Diagnostic (ICD-10-PCS; principal; 2024-10-07)
DX: D46.9 Myelodysplastic syndrome, unspecified (principal); J18.9 Pneumonia, unspecified organism; E46 Unspecified protein-calorie malnutrition; N17.9 Acute kidney failure, unspecified; E87.6 Hypokalemia; D69.6 Thrombocytopenia, unspecified; I10 Essential (primary) hypertension; Z68.21 Body mass index [BMI] 21.0-21.9, adult
CPT/HCPCS: 0241U-QW; 20225; 36415; 36430; 36511; 71046-TC-FY; 71250-TC; 77012-TC; 80053; 81003; 83605; 83735; 84100; 85025; 85027; 85610; 86140; 86922; 87040; 87070; 87077; 87081; 87205; 88300-TC; 93005; 93010; 97116-GP; 97161-GP; 99285-25; G0378; G0480; P9037; P9038; P9058